=== PATIENT | female | born 1965 | race Caucasian/White ===

== ENCOUNTER 2019-01-28 22:37 | Emergency (ER) | payer BC ==
[~2019-01-28] VITALS: Ht 162.6 cm; Wt 65.0 kg
[~2019-01-28 22:37] MED LIST: IBUP-1542 PO; OMEP40CA6 PO
[2019-01-28 22:39] VITALS: Ht 162.6 cm; Wt 65.0 kg
[2019-01-29] MEDS ORDERED: KETOROLAC 30 MG INJ IM STA (00:11)
--- NOTE | 2019-01-29 00:11 | ERD ---
ER Documentation Chief Complaint Chief Complaint L elbow pain on/off, worse today, no trauma HPI This is a 53-year-old female who presents here to emerge department with complaints of left elbow pain that has been going on and off for more than a week. Stated that the pain got worse today. Stated that she was at her primary care physician yesterday and that the steroid shot was injected to her left elbow. Patient is insisting to have an x-ray of her left elbow here in the emergency department. LMP: 2 years ago. A0. Denies headache, head injury, loss of consciousness, dizziness, neck pain, neck stiffness, throat pain, difficulty swallowing, difficulty breathing lying flat, shoulder pain, chest pain, back pain, abdominal pain, nausea, vomiting, constipation, diarrhea, urinary symptoms, or possibility being , loss of bowel and bladder control, trauma, injury, falls, difficulty walking due to pain, numbness or tingling sensation, calf pain, recent travel, recent major surgery in the last 3 weeks, calf pain, recent long travel, recent exposure to any illness, recent antibiotic use in the last 3 months, fever, chills, seizures. Past medical history: Unknown. Surgical history: Kidney surgery. Social: Denies smoking, use of alcoholic beverages, use of illegal drugs. ROS All systems reviewed and are negative except as per history of present illness. Medications Home Meds Active Scripts Omeprazole* (Omeprazole*) 40 Mg Capsule.dr, 40 MG PO DAILY, #30 CAP Prov:PASILABAN,KLAR F 01/29/19 Ibuprofen* (Motrin*) 600 Mg Tab, 600 MG PO Q8 PRN for PAIN AND OR ELEVATED TEMP, #30 TAB Prov:PASILABAN,KLAR F 01/29/19 Reported Medications [none] No Conflict Check 02/28/16 Allergies Allergies: Coded Allergies: No Known Drug Allergy (Verified Allergy, Unknown, 02/28/16) PMhx/Soc History of Surgery: Yes (kidney) Anesthesia Reaction: No Hx Neurological Disorder: No Hx Respiratory Disorders: No Hx Cardiac Disorders: No Hx Psychiatric Problems: No Hx Miscellaneous Medical Probl: No Hx Alcohol Use: No Hx Substance Use: No Hx Tobacco Use: No Physical Exam Vitals Physical Exam Const: No acute distress Head: Atraumatic Eyes: Normal Conjunctiva ENT: Normal External Ears, Nose and Mouth. Neck: Full range of motion. No meningismus. Resp: Clear to auscultation bilaterally Cardio: Regular rate and rhythm, no murmurs Abd: Soft, non tender, non distended. Normal bowel sounds Skin: No petechiae or rashes Back: No midline or flank tenderness Ext: No cyanosis, or edema. Left elbow: No obvious deformity. No obvious swelling. Full range of motion but with pain. Left forearm: Unremarkable. Left radial pulse within normal limits. Left hand is good and full function. Left shoulder is unremarkable. Right upper extremity is unremarkable. Capillary feels to bilateral upper extremities are less than 2 seconds. No neurovascular deficits. Neur: Awake and alert. No neurological deficits. Psych: Normal Mood and Affect Results 24 hrs Current Medications Medications Dose Sig/Peter Start Time Status Last (Trade) Ordered Route PRN Stop Time Admin Dose Reason Admin Ketorolac 30 mg ONCE STAT 01/29/19 DC 01/29/19 Tromethamine IM 00:11 00:21 (Toradol) 01/29/19 00:12 1 tab ONCE ONCE 01/29/19 DC 01/29/19 Acetaminophen PO 00:30 00:22 / 01/29/19 00:31 Hydrocodone Bitart ([place] (5/325)) Procedures/MDM Diagnostic tests: X-ray of the left elbow: No acute fracture or dislocation. Mild degenerative changes of the lateral epicondyle. Treatment: Toradol IM. [place] p.o. Re-evaluation: Denies elbow pain. Has good and full range of motion of her left elbow. Left hand is good and full function. No neurovascular deficit. Differential diagnosis I have low suspicion for fracture, compartment syndrome. Final diagnosis: Epicondylitis. Lateral epicondylitis. Tennis elbow. Prescription: Motrin. Omeprazole. Follow-up with PCP in the next 24-48 hours. Follow-up with marketing specialist in the next 24 to 48 hours. Come back here in the emergency dep artment for any new symptoms or any worsening symptoms. All questions and concerns were answered. Patient and family members verbalized understanding and agreed with plan of care. Hemodynamically stable on discharge. Departure Diagnosis: Primary Impression: Elbow pain Additional Impressions: Tennis elbow Epicondylitis Condition: Stable Additional Instructions: Follow-up with PCP in the next 24-48 hours. Follow-up with marketing specialist in the next 24 to 48 hours. Come back here in the emergency department for any new symptoms or any worsening symptoms. ELIA AKERS Jan 29, 2019 00:11
[2019-01-29] MEDS ORDERED: HYDROCODONE/APAP (5/325) TAB PO ONE (00:30)
[2019-01-29 02:51] VITALS: BP 128/73; PULSE 66; RESP 18
== END 2019-01-29 02:52 | disposition home or self-care (01) ==
LOC: FTE 22:37
DX: M77.12 Lateral epicondylitis, left elbow (principal)
CPT/HCPCS: 73080; J1885; Z7610; 96372